=== PATIENT | female | born 1995 | race African-American/Black ===

== ENCOUNTER 2021-01-05 16:06 | Emergency (ER) | payer BC ==
[~2021-01-05] VITALS: Ht 160 cm; Wt 65.6 kg
[2021-01-05 17:29] LABS: BASO % 1 % (0-3); EOS # 0.1 x10^3/uL (0.0-0.7); EOS % 1 % (0-3); HEMATOCRIT 33.6 % (36.0-47.0); HEMOGLOBIN 11.2 g/dL (12.0-15.5); LYMPH # 2.1 x10^3/uL (1.0-4.8); LYMPH % 31 % (24-48); MEAN CORPUSCULAR HEMOGLOBIN 30 pg (25-35); MEAN CORPUSCULAR HGB CONC 33 g/dL (31-37); MEAN CORPUSCULAR VOLUME 89 fL (79-100); MONO # 0.5 x10^3/uL (0.0-1.1); MONO % 7 % (0-9); NEUT # 4.2 x10^3uL (1.8-7.7); NEUT % 60 % (31-73); PLATELET COUNT 197 x10^3/uL (140-400); RED BLOOD COUNT 3.78 x10^6/uL (3.50-5.40); WHITE BLOOD COUNT 6.9 x10^3/uL (4.0-11.0)
[2021-01-05 17:39] LABS: CALCIUM 9.2 mg/dL (8.5-10.1); CREATININE 0.6 mg/dL (0.6-1.0); GFR 145.1
[2021-01-05 17:42] LABS: ALBUMIN 4.1 g/dL (3.4-5.0); ALBUMIN/GLOBULIN RATIO 1.2 (1.0-1.7); TOTAL BILIRUBIN 0.5 mg/dL (0.2-1.0); TOTAL PROTEIN 7.6 g/dL (6.4-8.2)
[2021-01-05 17:45] LABS: BILIRUBIN,URINE NEG (NEG); CLARITY,URINE CLEAR; COLOR,URINE YELLOW; GLUCOSE,URINE NEG (NEG)
[2021-01-05 17:46] LABS: BACTERIA,URINE FEW /HPF (0-FEW); NITRITE,URINE NEG (NEG); SQUAMOUS EPITHELIAL CELL,UR FEW /LPF; UROBILINOGEN,URINE 0.2 mg/dL (0.2 mg/dL)
--- NOTE | 2021-01-05 18:13 | RAD ---
US OB <14 WKS +TV History: Reason: VAG BLEEDING X 6 WEEKS, PELVIC PAIN, ON BC, POS PREG TEST / Spl. Instructions: / Hi story: Comparison: None. Technique: Grayscale and color Doppler imaging of the pelvis was performed using transabdominal and t ransvaginal technique. Findings: The uterus measures 7.7 x 4.4 x 4.1 cm. Endometrial thickness 6 mm No evidence of intrauterine gestational sac. Right ovary measures 2.9 x 2.8 x 1.9 cm. Heterogeneous region within the right adnexa ill-defined wit hout significant increased Doppler flow. Left ovary measures 2.6 x 1.4 x 1.7 cm. Normal Doppler flow to the ovaries bilaterally. Large complex fluid in the pelvis right greater than left. IMPRESSION: 1. No evidence of intrauterine . 2. Heterogeneous region within the right adnexa with large complex fluid in the pelvis, may represen t ruptured ectopic . Recommend further clinical evaluation. FOR INTERNAL CODING PURPOSES Critical result: Findings discussed with Erasto Carvajal at 01/05/2021 6:09 PM. RESULT CODE: (C) Electronically signed by: Tanner Renee DO (01/05/2021 6:11 PM) [facility] [place]
[2021-01-05 18:18] VITALS: BP 130/80
--- NOTE | 2021-01-05 18:25 | PHYS DOC ---
Past History Past Surgical History: No Surgical History (CHRISTOPHER RANKIN APRN) Alcohol Use: None (CHRISTOPHER RANKIN APRN) Adult General Chief Complaint Chief Complaint: ABDOMINAL PAIN IN HPI HPI Patient is a 25-year-old female who presents emergency department complaining of intermittent vaginal bleeding since November 17, reporting noticing pain in her low abdomen just to the right of center this past that seems off and on describing as a dull pain. Patient currently rates her pain at a 5 out of 10. Patient denies vaginal discharge, denies rashes or lesions to her vagina, denies STI concerns, denies urinary tract infection type signs and symptoms however states it does hurt in her low abdomen just before she has to urinate. She has noticed bright red to brown vaginal bleeding, no pink color, reports finding out yesterday she was per home test, called an [facility] who refused to see her stating she needed to come straight to the emergency room to have her abdominal pain evaluated first. Patient denies allergies to medications, this now makes her a G3, P2, denies problems with previous pregnancies. Patient reports she is from February [id number] and continues to tala st-feed since, states she is on a control pill, has not had a normal period since she became in 2019. Patient denies nausea, vomiting, diarrhea, syncopal episodes. Patient denies other physical complaints or physical concerns. (CHRISTOPHER RANKIN APRN) Review of Systems Review of Systems 14 body systems of review of systems have been reviewed. See HPI for pertinent positives and negative responses, otherwise all other systems are negative, nonpertinent or noncontributory. Constitutional: Negative except as outlined in HPI above. Skin: Negative except as outlined in HPI above. Eyes: Negative except as outlined in HPI above. HENT: Negative except as outlined in HPI above. Respiratory: Negative except as outlined in HPI above. Cardiovascular: Negative except as outlined in HPI above. GI: Negative except as outlined in HPI above. : Negative except as outlined in HPI above. Musculoskeletal: Negative except as outlined in HPI above. Integument: Negative except as outlined in HPI above. Neurologic: Negative except as outlined in HPI above. Endocrine: Negative except as outlined in HPI above. Lymphatic: Negative except as outlined in HPI above. Psychiatric: Negative except as outlined in HPI above. (CHRISTOPHER RANKIN APRN) Allergies Allergies Allergies Coded Allergies Type Severity Reaction Last Updated Verified No Known Drug Allergies 01/05/21 No (CHRISTOPHER RANKIN APRN) Physical Exam Physical Exam Constitutional: Well developed, well nourished, no acute distress, non-toxic appearance. [] HENT: Normocephalic, atraumatic, bilateral external ears normal, oropharynx moist, no oral exudates, nose normal. [] Eyes: PERRLA, EOMI, conjunctiva normal, no discharge. [] Neck: Normal range of motion, no tenderness, supple, no stridor. [] Cardiovascular:Heart rate regular rhythm, no murmur [] Lungs & Thorax: Bilateral breath sounds clear to auscultation [] Abdomen: Bowel sounds normal, soft, no tenderness, no masses, no pulsatile masses. [] Skin: Warm, dry, no erythema, no rash. [] Back: No tenderness, no CVA tenderness. [] Extremities: No tenderness, no cyanosis, no clubbing, ROM intact, no edema. [] Neurologic: Alert and oriented X 3, normal motor function, normal sensory function, no focal deficits noted. [] Psychologic: Affect normal, judgement normal, mood normal. [] (CHRISTOPHER RANKIN APRN) Current Patient Data Vital Signs Vital Signs Date Time Temp Pulse Resp B/P (MAP) Pulse Ox O2 Delivery O2 Flow Rate FiO2 01/05/21 16:22 98.1 110 18 143/102 (116) 97 Room Air Lab Results Laboratory Tests Test 01/05/21 16:20 01/05/21 16:46 01/05/21 17:22 Urine Collection Type Unknown Urine Color Yellow Urine Clarity Clear Urine pH 5.5 Urine Specific Devon >=1.030 Urine Protein Neg Urine Glucose (UA) Neg mg/dL Urine Ketones (Stick) Neg mg/dL Urine Blood Large Urine Nitrite Neg Urine Bilirubin Neg Urine Urobilinogen Dipstick 0.2 mg/dL Urine Leukocyte Esterase Neg Urine RBC 1-2 /HPF Urine WBC 1-4 /HPF Urine Squamous Epithelial Cells Few /LPF Urine Bacteria Few /HPF White Blood Count 6.9 x10^3/uL Red Blood Count 3.78 x10^6/uL Hemoglobin 11.2 g/dL Hematocrit 33.6 % Mean Corpuscular Volume 89 fL Mean Corpuscular Hemoglobin 30 pg Mean Corpuscular Hemoglobin Concent 33 g/dL Red Cell Distribution Width 13.0 % Platelet Count 197 x10^3/uL Neutrophils (%) (Auto) 60 % Lymphocytes (%) (Auto) 31 % Monocytes (%) (Auto) 7 % Eosinophils (%) (Auto) 1 % Basophils (%) (Auto) 1 % Neutrophils # (Auto) 4.2 x10^3uL Lymphocytes # (Auto) 2.1 x10^3/uL Monocytes # (Auto) 0.5 x10^3/uL Eosinophils # (Auto) 0.1 x10^3/uL Basophils # (Auto) 0.0 x10^3/uL Maternal Serum HCG Beta Subunit 1404 mIU/mL Sodium Level 138 mmol/L Potassium Level 4.0 mmol/L Chloride Level 104 mmol/L Carbon Dioxide Level 24 mmol/L Anion Gap 10 Blood Urea Nitrogen 10 mg/dL Creatinine 0.6 mg/dL Estimated GFR (Cockcroft-Gault) 145.1 BUN/Creatinine Ratio 17 Glucose Level 88 mg/dL Calcium Level 9.2 mg/dL Total Bilirubin 0.5 mg/dL Aspartate Amino Transf (AST/SGOT) 13 U/L Alanine Aminotransferase (ALT/SGPT) 17 U/L Alkaline Phosphatase 63 U/L Total Protein 7.6 g/dL Albumin 4.1 g/dL Albumin/Globulin Ratio 1.2 Bedside Urine HCG, Qualitative hcg positive Laboratory Tests Test 01/05/21 16:20 01/05/21 16:46 01/05/21 17:22 Urine Collection Type Unknown Urine Color Yellow Urine Clarity Clear Urine pH 5.5 Urine Specific Devon >=1.030 Urine Protein Neg (NEG-TRACE) Urine Glucose (UA) Neg mg/dL (NEG) Urine Ketones (Stick) Neg mg/dL (NEG) Urine Blood Large (NEG) Urine Nitrite Neg (NEG) Urine Bilirubin Neg (NEG) Urine Urobilinogen Dipstick 0.2 mg/dL (0.2 mg/dL) Urine Leukocyte Esterase Neg (NEG) Urine RBC 1-2 /HPF (0-2) Urine WBC 1-4 /HPF (0-4) Urine Squamous Epithelial Cells Few /LPF Urine Bacteria Few /HPF (0-FEW) White Blood Count 6.9 x10^3/uL (4.0-11.0) Red Blood Count 3.78 x10^6/uL (3.50-5.40) Hemoglobin 11.2 g/dL (12.0-15.5) L Hematocrit 33.6 % (36.0-47.0) L Mean Corpuscular Volume 89 fL (79-100) Mean Corpuscular Hemoglobin 30 pg (25-35) Mean Corpuscular Hemoglobin Concent 33 g/dL (31-37) Red Cell Distribution Width 13.0 % (11.5-14.5) Platelet Count 197 x10^3/uL (140-400) Neutrophils (%) (Auto) 60 % (31-73) Lymphocytes (%) (Auto) 31 % (24-48) Monocytes (%) (Auto) 7 % (0-9) Eosinophils (%) (Auto) 1 % (0-3) Basophils (%) (Auto) 1 % (0-3) Neutrophils # (Auto) 4.2 x10^3uL (1.8-7.7) Lymphocytes # (Auto) 2.1 x10^3/uL (1.0-4.8) Monocytes # (Auto) 0.5 x10^3/uL (0.0-1.1) Eosinophils # (Auto) 0.1 x10^3/uL (0.0-0.7) Basophils # (Auto) 0.0 x10^3/uL (0.0-0.2) Maternal Serum HCG Beta Subunit 1404 mIU/mL (0-6) H Sodium Level 138 mmol/L (136-145) Potassium Level 4.0 mmol/L (3.5-5.1) Chloride Level 104 mmol/L (98-107) Carbon Dioxide Level 24 mmol/L (21-32) Anion Gap 10 (6-14) Blood Urea Nitrogen 10 mg/dL (7-20) Creatinine 0.6 mg/dL (0.6-1.0) Estimated GFR (Cockcroft-Gault) 145.1 BUN/Creatinine Ratio 17 (6-20) Glucose Level 88 mg/dL (70-99) Calcium Level 9.2 mg/dL (8.5-10.1) Total Bilirubin 0.5 mg/dL (0.2-1.0) Aspartate Amino Transferase (AST) 13 U/L (15-37) L Alanine Aminotransferase (ALT) 17 U/L (14-59) Alkaline Phosphatase 63 U/L (46-116) Total Protein 7.6 g/dL (6.4-8.2) Albumin 4.1 g/dL (3.4-5.0) Albumin/Globulin Ratio 1.2 (1.0-1.7) POC Urine HCG, Qualitative hcg positive (Negative) (CHRISTOPHER RANKIN APRN) EKG EKG [] (CHRISTOPHER RANKIN APRN) Radiology/Procedures Radiology/Procedures PATIENT: CAROL CORNEJO ACCOUNT: [id number] : 1995 LOCATION: ER AGE: 25 SEX: F EXAM STATUS: REG ER ORD. PHYSICIAN: CHRISTOPHER RANKIN APRN REASON: VAG BLEEDING X 6 WEEKS, PELVIC PAIN, ON BC, POS PREG TEST PROCEDURE: OB <14 WKS W/TV US OB <14 WKS +TV History: Reason: VAG BLEEDING X 6 WEEKS, PELVIC PAIN, ON BC, POS PREG TEST / Spl. Instructions: / History: Comparison: None. Technique: Grayscale and color Doppler imaging of the pelvis was performed using transabdominal and transvaginal technique. Findings: The uterus measures 7.7 x 4.4 x 4.1 cm. Endometrial thickness 6 mm No evidence of intrauterine gestational sac. Right ovary measures 2.9 x 2.8 x 1.9 cm. Heterogeneous region within the right adnexa ill-defined without significant increased Doppler flow. Left ovary measures 2.6 x 1.4 x 1.7 cm. Normal Doppler flow to the ovaries bilaterally. Large complex fluid in the pelvis right greater than left. IMPRESSION: 1. No evidence of intrauterine . 2. Heterogeneous region within the right adnexa with large complex fluid in the pelvis, may represent ruptured ectopic . Recommend further clinical evaluation. FOR INTERNAL CODING PURPOSES Critical result: Findings discussed with Christopher Escamilla at 01/05/2021 6:09 PM. (CHRISTOPHER RANKIN APRN) Heart Score C/O Chest Pain: No Risk Factors: Risk Factors: DM, Current or recent (<one month) smoker, HTN, HLP, family hist ory of CAD, obesity. Risk Scores: Risk Factors: DM, Current or recent (<one month) smoker, HTN, HLP, family history of CAD, obesity. (CHRISTOPHER RANKIN APRN) Course & Med Decision Making Course & Med Decision Making Pertinent Labs and Imaging studies reviewed. (See chart for details) 25-year-old female, vital signs reviewed, presents emergency department concerning lower right abdominal pain since this past with intermittent vaginal bleeding. Patient had a positive test yesterday. Physical examination concerning for early IUP versus threatened miscarriage versus ectopic . Will order urinalysis assay, urine test, beta hCG quant, CBC, CMP, ABO type and Rh. Transvaginal ultrasound less than 14 weeks. Unable to determine EDC related to patient has not had a menstrual cycle since April 2019, is since January 2020, has breast-fed and been on control, has not had a normal menstrual cycle since becoming in 2019. Patient is O+, beta hCG 1404. Radiology just called to discuss patient sonogram findings with myself. Concerning for ruptured ectopic of the right. Discussed findings with patient, recommend transfer to hospital with [facility] specialty for surgical consult with [facility], patient is amenable to this plan. Rapid Covid testing ordered, saline lock. Called and discussed patient case and ED work-up with [facility] specialist Dr. Renee from [facility] who agrees patient case warrants emergent transfer to [facility] for surgery of right sided ectopic . EMTALA transfer forms reviewed and signed by ED attending physician Dr. Escamilla. Patient awaiting local EMS transport to [facility] at this time. (CHRISTOPHER RANKIN APRN) Dragon Disclaimer Dragon Disclaimer This electronic medical record was generated, in whole or in part, using a voice recognition dictation system. (CHRISTOPHER RANKIN APRN) Departure Departure: Impression: Primary Impression: Ruptured ectopic Disposition: SHORT TERM HOSPITAL ([facility] specialist Dr. Renee accepted patient in transfer to [facility] for surgery) Condition: STABLE Referrals: PCP,NO (PCP) Attending Signature Attending Signature I have reviewed the PA/YARN SPINNER's note and plan of care. I was available for consultation as needed during the patient's visit in the emergency department. I agree with the clinical impression, plan, and disposition. (CHRISTOPHER ESCAMILLA DO) CHRISTOPHER RANKIN APRN Jan 05, 2021 18:25 CHRISTOPHER ESCAMILLA DO Jan 05, 2021 18:57
== END 2021-01-05 19:05 | disposition short-term general hospital (02) ==
LOC: ER 16:06
DX: O00.80 Other ectopic pregnancy without intrauterine pregnancy (principal); Z20.822 Contact with and (suspected) exposure to COVID-19
CPT/HCPCS: 36415; 76801; 76817; 80053; 81001; 81025; 84702; 85025; 86900; 86901; 87426; 99285; C9803; U0003